=== PATIENT | male | born 1935 | race Caucasian/White ===

== ENCOUNTER 2018-12-27 10:36 | Inpatient (IN) ==
--- OUTSIDE RECORDS SUMMARY | 2018-12-27 10:39 | External Medical Summary | Continuity of Care Document ---
:1935 Author Name Adore Foote Address Unavailable Unavailable , Care Team Providers Name Role Phone Unavailable Unavailable Unavailable PCP, NO Unavailable Unavailable Unavailable Unavailable Unavailable Problems Active medical history not documented Allergies and Adverse Reactions Allergy history not documented Medications Medications not documented Procedures Procedures not documented Immunizations Immunizations not documented Plan of Treatment Planned Observations Planned Goals not documented Results No Known Results Results not documented
--- NOTE | 2018-12-27 10:46 | Emergency Department Note ---
Entered by Marybel Klein acting as a scribe for Antonio Zhang DO History of Present Illness General Chief complaint: Hip Pain Source: patient and EMS History of Present Illness Onset (ago): hour(s) (this morning) Location: hip (left) Pain Consistency: + other (episode) Quality: + other (Trauma post fall) Relieved By: not by medication (Fentanyl) Exacerbated By: + movement (standing) Associated symptoms: + denies other symptoms (abdominal pain, calf pain, right leg pain, chest pain, or shortness of breath) and + other (left rib pain, left elbow skin tear) The patient is a 83 year old male with a history of a bilateral hip replacement that is presenting to the Emergency Room with complaints of an episode of left hip pain following a fall that occurred this morning. The patient reports that he tripped on his toes and fell onto his left side. He states that his left arm came down underneath him and notes that he has a small skin tear on his left elb ow. He notes that he felt a click in his left hip followed by pain. He reports that he is unable to stand secondary to the pain. The patient notes some pain in his left-sided rib cage. He denies any abdominal pain, calf pain, right leg pain, chest pain, or shortness of breath. He states that he had bilateral hip replacements 30 years ago. He reports that he has an AAA that his providers are unable to operate on at this time. He notes that he is allergic to Ativan and aspirin. He reports that he has chronic shoulder pain but states that he is able to move his arms without any abnormal pain currently. The patient notes that he had his last Tetanus booster 5-6 years ago. He denies taking any blood thinners but notes that he takes blood pressure medication. The patient arrived to the ED via EMS. EMS notes that the patient had 4 doses of Zofran and 50mcg-Fentanyl 30 minutes prior to the ED. Home Medications Home Medications Medication Instructions Recorded Confirmed Type budesonide-formoterol [Symbicort] 2 puff INHALATION BID 12/27/18 12/27/18 History carvedilol 3.125 mg PO HS 12/27/18 12/27/18 History cholecalciferol (vitamin D3) 2,000 unit PO DAILY 12/27/18 12/27/18 History [Vitamin D3] finasteride [Proscar] 5 mg PO HS 12/27/18 12/27/18 History nifedipine 30 mg PO BID 12/27/18 12/27/18 History potassium chloride 20 meq PO DAILY 12/27/18 12/27/18 History prednisone 5 mg PO DAILY PRN 12/27/18 12/27/18 History tamsulosin [Flomax] 0.4 mg PO HS 12/27/18 12/27/18 History Allergies Allergy/AdvReac Type Severity Reaction Status Date / Time Iodinated Contrast- Oral and Allergy Intermediate HIVES Verified 12/27/18 11:21 IV Dye aspirin Allergy SWELLING/HI Verified 12/27/18 11:21 VES Cipro Allergy SWELLING/HI Verified 09/07/12 21:55 VES ciprofloxacin Allergy SWELLING/HI Verified 12/27/18 11:21 VES lorazepam Allergy NEURO Verified 12/27/18 11:21 CHANGES Past Med/Surg History Medical History Chronic shoulder pain (Chronic) Hypertension (Chronic) Surgical History S/P bilateral hip replacements Family History Other Family history non-contributory Social History marital status: Current Living Situation: Spouse current occupational status: retired Feels Safe at Home: Yes Smoking Status: Former smoker Review of Systems See HPI for pertinent positives & negatives. and A total of 10 systems reviewed and were otherwise negative Physical Exam Vital Signs Vital Signs - 24 hr 12/27/18 10:43 12/27/18 10:45 12/27/18 11:00 Temperature Temperature Source Sepsis Recent Fever Within 48 Hours Sepsis New/Unexplained Change in Mental Status Sepsis Action Taken by Nursing Pulse Rate 68 70 67 Pulse Rate from SpO2 Sensor 71 64 68 Respiratory Rate 21 22 19 Respiratory Effort / Characteristics Respiratory Pattern Blood Pressure 137/80 Blood Pressure Mean 99 Pulse Oximetry 96 95 94 Oxygen Delivery Method 12/27/18 11:01 12/27/18 11:07 12/27/18 11:16 Temperature 36.5 C Temperature Source Oral Sepsis Recent Fever Within 48 Hours No Sepsis New/Unexplained Change in Mental Status No Sepsis Action Taken by Nursing No Action Required Pulse Rate 73 69 Pulse Rate from SpO2 Sensor 68 Respiratory Rate 20 18 Respiratory Effort / Characteristics Non-Labored Spontaneous Respiratory Pattern Regular Blood Pressure 137/80 134/82 Blood Pressure Mean 90 99 99 Pulse Oximetry 94 94 Oxygen Delivery Method Room Air 12/27/18 11:30 12/27/18 11:31 12/27/18 12:00 Temperature Temperature Source Sepsis Recent Fever Within 48 Hours Sepsis New/Unexplained Change in Mental Status Sepsis Action Taken by Nursing Pulse Rate 66 71 71 Pulse Rate from SpO2 Sensor 69 69 67 Respiratory Rate 19 25 H 14 Respiratory Effort / Characteristics Respiratory Pattern Blood Pressure 136/96 Blood Pressure Mean 109 Pulse Oximetry 89 L 91 97 Oxygen Delivery Method 12/27/18 12:01 12/27/18 12:30 12/27/18 12:31 Temperature Temperature Source Sepsis Recent Fever Within 48 Hours Sepsis New/Unexplained Change in Mental Status Sepsis Action Taken by Nursing Pulse Rate 68 70 73 Pulse Rate from SpO2 Sensor 69 71 73 Respiratory Rate 16 14 17 Respiratory Effort / Characteristics Respiratory Pattern Blood Pressure 130/78 127/90 Blood Pressure Mean 95 102 Pulse Oximetry 92 95 94 Oxygen Delivery Method GENERAL: The patient is awake and alert. He is very anxious appearing and appears to be uncomfortable. EYES: The conjunctivae are clear. The pupils are round and reactive. EARS, NOSE, MOUTH AND THROAT: The nose is without any evidence of any deformity. Mucous membranes are moist tongue is midline. There is ecchymosis and abrasion over the left side of the forehead. No active bleeding is noted. NECK: The neck is nontender and supple. RESPIRATORY: Normal respiratory effort is noted there is no evidence of wheezing rhonchi or rales CARDIOVASCULAR: Regular rate and rhythm noted there no murmurs rubs or gallops normal S1 normal S2 GASTROINTESTINAL: The abdomen is soft. Bowel sounds are present in all quadrants. Abdomen is nontender BACK: No midline tenderness was appreciated. MUSCULOSKELETAL/EXTREMITIES: There is pain with range of motion of the left hip. There is no shortening or deformity noted. Palpable tenderness is noted over the lateral aspect the left hip. There is palpable tenderness over the left side of the chest. No crepitus was appreciated. SKIN: Pedal edema was noted bilaterally. Venous stasis changes are noted in both legs. There are skin tears in the left forearm. NEUROLOGIC: Patient is awake alert and oriented x3. Course 1037:The patient was evaluated in room A03. A complete history and physical examination was performed. 1141: I updated the patient on his current lab and imaging results. He is resting comfortably at this time. He is amenable to the treatment plan. 1151: I discussed the patient's case with Mónica Arroyo, who will evaluate the patient for further management and care. 1153: I discussed the patient's case with Dr. Espino, Orthopedic Surgeon, who will follow with a consultation to determine the patient's surgical needs if any. 1205: Upon reevaluation, the patient is resting comfortably. I discussed laboratory and radiographic results with the patient. He verbalized agreement of the treatment plan. The patient will be evaluated for further management and care. Consultations Consultation #1: I discussed the patient's case with Mónica Arroyo, who will evaluate the patient for further management and care. Time: 11:51 Consultation #2: I discussed the patient's case with Dr. Espino, Orthopedic Surgeon at [facility], who will follow with a consultation to determine the patient's surgical needs if any. Time: 11:53 Administered Medications Morphine Sulfate (Morphine Sulfate) 4 mg IV Q15M PRN PRN Reason: Pain Stop: 01/10/19 10:42 Last Admin: 12/27/18 10:57 Dose: 4 mg Documented by: [id number] Medical Decision Making Differential Diagnosis Differential diagnosis: Etiologies such as fracture, dislocation, intra-abdominal, pneumothorax, intrathoracic , intracranial, neurologic, as well as other traumatic pathologies were entertained. Medical Records Attestation: I reviewed the patient's medical records. Home Medications Current Medication List: was personally reviewed by me Laboratory Data Attestation: I reviewed the patient's lab results. Result diagrams: 12/27/18 09:50 12/27/18 09:50 Lab Results 12/27/18 12/27/18 12/27/18 Range/Units 09:50 09:50 09:50 WBC 5.38 (4.8-10.8) K/uL RBC 4.69 L (4.7-6.1) M/uL Hgb 15.2 (14.0-18.0) g/dL Hct 44.2 (42-52) % MCV 94.2 (80-100) fL MCH 32.4 (25-34) pg MCHC 34.4 (32-36) g/dL RDW Std Deviation 49.1 H (36.4-46.3) fL RDW Coeff of Miles 14.4 (11.5-14.5) % Plt Count 90 L (130-400) K/uL MPV 11.7 H (7.4-10.4) fL Immature Gran % (Auto) 0.4 % Neut % (Auto) 69.3 % Lymph % (Auto) 19.9 % [place] % (Auto) 9.5 % Eos % (Auto) 0.9 % Baso % (Auto) 0.0 % Immature Gran # (Auto) 0.02 (0.00-0.02) K/uL Neut # (Auto) 3.73 (1.4-6.5) K/uL Lymph # (Auto) 1.07 L (1.2-3.4) K/uL [place] # (Auto) 0.51 (0.11-0.59) K/uL Eos # (Auto) 0.05 (0-0.5) K/uL Baso # (Auto) 0.00 (0-0.2) K/uL Platelet Estimate Decreased L (Normal) PT 11.4 (9.0-12.0) Seconds INR 1.1 (0.9-1.1) APTT 26.6 (21.0-31.0) Seconds PTT Ratio 1.0 Sodium 142 (136-145) mmol/L Potassium 3.1 L (3.5-5.1) mmol/L Chloride 107 (98-107) mmol/L Carbon Dioxide 25 (21-32) mmol/L Anion Gap 10.0 (3-11) BUN 19 H (7-18) mg/dl Creatinine 0.92 (0.6-1.4) mg/dl Est Cr Clr Drug Dosing Not Reportable Est GFR ( Amer) 89.5 Est GFR (Non-Af Amer) 77.2 BUN/Creatinine Ratio 21.1 H (10-20) Glucose 112 H (70-99) mg/dl Calcium 8.3 L (8.5-10.1) mg/dl Troponin I < 0.015 (0-0.045) ng/ml Imaging Data Radiologist's Impression: Radiology results as stated below per my review and the radiologist's interpretation: CT OF THE HEAD WITHOUT CONTRAST CLINICAL HISTORY: Fall. COMPARISON STUDY: No previous studies for comparison. TECHNIQUE: Helical axial images of the head were obtained without IV contrast. Automated exposure control was utilized for the study. A dose lowering technique was utilized adhering to the principles of ALARA. FINDINGS: No acute intracranial hemorrhage, midline shift or mass effect is present. The ventricular system is unremarkable. The basilar cisterns are patent. No extra-axial collections are present. There are no findings to suggest acute dural sinus thrombosis or acute territorial infarct. Small left frontal scalp contusion is noted. There is no calvarial fracture. Air-fluid level within the left maxillary sinus is noted. Wall thickening of the left maxilla sinus is noted. IMPRESSION: 1. No acute intracranial findings. 2. Small left frontal scalp contusion. No calvarial fracture. 3. Air-fluid level within the left maxillary sinus which is likely inflammatory. Electronically signed by: Ky Malhotra M.D. 12/27/2018 11:[address] OF THE CERVICAL SPINE WITHOUT CONTRAST CLINICAL HISTORY: Fall. COMPARISON STUDY: No previous studies for comparison. TECHNIQUE: Helical axial images of the cervical spine were obtained without IV contrast. Sagittal and coronal reconstructions were viewed. Automated exposure control was utilized for the study. A dose lowering technique was utilized adhering to the principles of ALARA. FINDINGS: No cervical spine fracture is noted. There is severe multilevel facet arthrosis and marked disc space narrowing with osteophytosis at C5-C6 and C6-C7. There is no prevertebral edema. Facet joints are intact. No osseous lesion is noted. Left maxillary sinus air-fluid level is likely inflammatory. IMPRESSION: No acute cervical spine fracture or subluxation. Electronically signed by: Ky Malhotra M.D. 12/27/2018 11:23 AM XR chest 1V portable CLINICAL HISTORY: Fall. COMPARISON STUDY: Chest radiograph September 25, 2012. MRI of the chest March 05, 2016. FINDINGS: Prominence of the aortic arch is again noted. Cardiomegaly is unchanged. There is no evidence for pulmonary edema or pneumonia. No pneumothorax or pleural effusion is noted. There are several age indeterminate nondisplaced anterolateral left rib fractures including the fifth, sixth, seventh ribs and eighth ribs. IMPRESSION: Several age indeterminate nondisplaced left-sided rib fractures. No pneumothorax. Electronically signed by: Ky Malhotra M.D. 12/27/2018 11:45 AM XR hip LT 2-3V w pelvis CLINICAL HISTORY: Fall. Left hip pain. COMPARISON: CT of the chest, abdomen and pelvis September 25, 2012. FINDINGS: Bilateral total hip arthroplasties are noted. No acute fracture within the pelvis is noted. No proximal right femoral fracture is noted. Note is made of an acute minimally displaced comminuted periprosthetic left femoral fracture which extends through the base of the greater trochanter. IMPRESSION: Acute minimally displaced comminuted periprosthetic left femoral fracture which extends through the greater trochanter. Electronically signed by: Ky Malhotra M.D. 12/27/2018 11:41 AM ECG Data Attestation: I personally reviewed and interpreted this ECG as follows: Indication: other (trauma) Rate (beats per minute): 64 Rhythm: normal sinus Findings: no PAC, no PVC, no ST depression, no ST elevation, no acute ischemic change and no ectopy Comparison ECG Date: from (09/25/12) Change: no significant change Blood Pressure Blood Pressure Findings: Elevated blood pressure Blood Pressure Disposition: Referred to patients primary care provider YEIMI Narrative The patient is an 83-year-old male who presented to the emergency department after a fall. The patient had a mechanical fall where he landed on his left side. He suffered a chest wall contusion facial contusion but also was found to have signs of hip fracture on x-ray. The patient was found to have a p eriprosthetic hip fracture. He is unable to bear weight prior to arrival at this time he was advised to remain nonweightbearing. He was treated with pain medication in the emergency department. I discussed the patient's laboratory and radiographic studies with him and his family members. I also discussed his case with the on-call [facility] hospitalist group. They have agreed to evaluate the patient in the emergency department for further management disposition. I also discussed this case with the on-call orthopedic physician. Impression & Plan Fall, Periprosthetic fracture around internal prosthetic left hip joint, Head injury, Contusion of chest, Facial contusion Discharge Plan Visit Data Chief Complaint: Hip Pain ED Provider: Antonio Zhang Discharge Problem: Fall, Periprosthetic fracture around internal prosthetic left hip joint, Head injury, Contusion of chest, Facial contusion Patient Disposition: Being Evaluated by Hospitalist Forms Stand Alone Forms: My [facility] Prescriptions Prescriptions: No Action prednisone 5 mg tablet 5 mg PO DAILY PRN (Reason: knee pain) RF: 0 carvedilol 3.125 mg tablet 3.125 mg PO HS RF: 0 nifedipine 30 mg Tablet Extended Release 24hr 30 mg PO BID RF: 0 tamsulosin [Flomax] 0.4 mg Capsule 0.4 mg PO HS RF: 0 finasteride [Proscar] 5 mg Tablet 5 mg PO HS RF: 0 Symbicort 160-4.5 mcg/actuation Hfa Aerosol Inhaler 2 puff INHALATION BID RF: 0 cholecalciferol (vitamin D3) [Vitamin D3] 2,000 unit Tablet 2,000 unit PO DAILY RF: 0 potassium chloride 20 mEq Tablet Extended Release 20 meq PO DAILY RF: 0 Referrals Referrals: Ricky Landers MD [Primary Care Provider] - Discharge Problem: Fall Qualifiers: Encounter type: initial encounter Qualified Code(s): W19.XXXA - Unspecified fall, initial encounter Periprosthetic fracture around internal prosthetic left hip joint Qualifiers: Encounter type: initial encounter Qualified Code(s): M97.02XA - Periprosthetic fracture around internal prosthetic left hip joint, initial encounter Head injury Qualifiers: Encounter type: initial encounter Qualified Code(s): S09.90XA - Unspecified injury of head, initial encounter Contusion of chest Qualifiers: Encounter type: initial encounter Laterality: left Qualified Code(s): S20.212A - Contusion of left front wall of thorax, initial encounter Facial contusion Qualifiers: Encounter type: initial encounter Qualified Code(s): S00.83XA - Contusion of other part of head, initial encounter The scribe's documentation has been prepared under my direction and personally reviewed by me in its entirety. I confirm that the note above accurately reflects all work, treatment, procedures, and medical decision making performed by me.
[2018-12-27] MEDS: MoRPHine SULFATE 4 MG/ML 1 ML CARP\\VIAL IV PRN ×3 (10:57→16:00)
[2018-12-27 11:08] LABS: INR 1.1 (0.9-1.1); Partial Thromboplastin Time 26.6 Seconds (21.0-31.0); Prothrombin Time 11.4 Seconds (9.0-12.0)
[2018-12-27 11:10] LABS: BUN Creatinine Ratio 21.1 (10-20); Blood Urea Nitrogen 19 mg/dl (7-18); Calcium 8.3 mg/dl (8.5-10.1); Carbon Dioxide 25 mmol/L (21-32); Chloride 107 mmol/L (98-107); Est GFR (African American) 89.5; Est GFR (Non-African American) 77.2; Glucose 112 mg/dl (70-99); Potassium 3.1 mmol/L (3.5-5.1); Sodium 142 mmol/L (136-145)
[2018-12-27 11:13] LABS: Eosinophils # (auto) 0.05 K/uL (0-0.5); Eosinophils % (auto) 0.9 %; Hematocrit (blood only) 44.2 % (42-52); Hemoglobin 15.2 g/dL (14.0-18.0); Immature Granulocytes # (auto) 0.02 K/uL (0.00-0.02); Immature Granulocytes % (auto) 0.4 %; Lymphocytes # (auto) 1.07 K/uL (1.2-3.4); Lymphocytes % (auto) 19.9 %; Mean Corpuscular Hemoglobin 32.4 pg (25-34); Mean Corpuscular Hgb Conc 34.4 g/dL (32-36); Mean Corpuscular Volume 94.2 fL (80-100); Mean Platelet Volume 11.7 fL (7.4-10.4); Monocytes # (auto) 0.51 K/uL (0.11-0.59); Monocytes % (auto) 9.5 %; Neutrophils # (auto) 3.73 K/uL (1.4-6.5); Neutrophils % (auto) 69.3 %; Platelet Count 90 K/uL (130-400); Platelet Estimate Decreased (Normal); RDW Coefficient of Variation 14.4 % (11.5-14.5); RDW Standard Deviation 49.1 fL (36.4-46.3); Red Blood Count 4.69 M/uL (4.7-6.1); White Blood Count 5.38 K/uL (4.8-10.8)
[2018-12-27 11:14] LABS: Troponin I < 0.015 ng/ml (0-0.045)
--- NOTE | 2018-12-27 11:17 | CT Scan Report ---
CT OF THE HEAD WITHOUT CONTRAST CLINICAL HISTORY: Fall. COMPARISON STUDY: No previous studies for comparison. TECHNIQUE: Helical axial images of the head were obtained without IV contrast. Automated exposure con trol was utilized for the study. A dose lowering technique was utilized adhering to the principles o f ALARA. FINDINGS: No acute intracranial hemorrhage, midline shift or mass effect is present. The ventricular system is unremarkable. The basilar cisterns are patent. No extra-axial collections are present. Ther e are no findings to suggest acute dural sinus thrombosis or acute territorial infarct. Small left fr ontal scalp contusion is noted. There is no calvarial fracture. Air-fluid level within the left maxil shagufta sinus is noted. Wall thickening of the left maxilla sinus is noted. IMPRESSION: 1. No acute intracranial findings. 2. Small left frontal scalp contusion. No calvarial fracture. 3. Air-fluid level within the left maxillary sinus which is likely inflammatory. Electronically signed by: Ky Malhotra M.D. 12/27/2018 11:15 AM
--- NOTE | 2018-12-27 11:25 | CT Scan Report ---
CT OF THE CERVICAL SPINE WITHOUT CONTRAST CLINICAL HISTORY: Fall. COMPARISON STUDY: No previous studies for comparison. TECHNIQUE: Helical axial images of the cervical spine were obtained without IV contrast. Sagittal a nd coronal reconstructions were viewed. Automated exposure control was utilized for the study. A do se lowering technique was utilized adhering to the principles of ALARA. FINDINGS: No cervical spine fracture is noted. There is severe multilevel facet arthrosis and marked disc space narrowing with osteophytosis at C5-C6 and C6-C7. There is no prevertebral edema. Facet yary nts are intact. No osseous lesion is noted. Left maxillary sinus air-fluid level is likely inflammato ry. IMPRESSION: No acute cervical spine fracture or subluxation. Electronically signed by: Ky Malhotra M.D. 12/27/2018 11:23 AM
--- NOTE | 2018-12-27 11:43 | XRay Report ---
XR hip LT 2-3V w pelvis CLINICAL HISTORY: Fall. Left hip pain. COMPARISON: CT of the chest, abdomen and pelvis September 25, 2012. FINDINGS: Bilateral total hip arthroplasties are noted. No acute fracture within the pelvis is noted . No proximal right femoral fracture is noted. Note is made of an acute minimally displaced comminute d periprosthetic left femoral fracture which extends through the base of the greater trochanter. IMPRESSION: Acute minimally displaced comminuted periprosthetic left femoral fracture which extends t hrough the greater trochanter. Electronically signed by: Ky Malhotra M.D. 12/27/2018 11:41 AM
--- NOTE | 2018-12-27 11:46 | XRay Report ---
XR chest 1V portable CLINICAL HISTORY: Fall. COMPARISON STUDY: Chest radiograph September 25, 2012. MRI of the chest March 05, 2016. FINDINGS: Prominence of the aortic arch is again noted. Cardiomegaly is unchanged. There is no eviden ce for pulmonary edema or pneumonia. No pneumothorax or pleural effusion is noted. There are several age indeterminate nondisplaced anterolateral left rib fractures including the fifth, sixth, seventh r ibs and eighth ribs. IMPRESSION: Several age indeterminate nondisplaced left-sided rib fractures. No pneumothorax. Electronically signed by: Ky Malhotra M.D. 12/27/2018 11:45 AM
--- NOTE | 2018-12-27 12:33 | History & Physical Report ---
Date of Service December 27, 2018 Assessment & Plan (1) Periprosthetic fracture around internal prosthetic left hip joint: Closed L hip fracture around prior prosthesis s/p mechanical fall at home two hours prior to arrival. LLE is immovable 2/2 pain. NVI. Pain control with scheduled tylenol and PRN narcotics as needed. Awaiting orthopedic recommendations. Will hold on PT/OT consultations until seen by Ortho and given activity instructions. (2) Fall: Plan as above. (3) Head injury: Minimal injury, CT head is negative, no LOC noted, Supportive care (4) Hypertension: At goal, cont home nifedipine. (5) Hypokalemia: replace and repeat in am, Mg in am. Takes chronic potassium supplementation at home. (6) Abdominal aneurysm: chronic stable on imaging August 2018. Approx 5.2cm in diameter (7) Thoracic aortic dissection: chronic, stable on imaging August 2018. (8) DVT prophylaxis: SCDs pending Ortho recommendations for possible procedure. Full Code as discussed with patient on admission. Dispo-To Ortho Med/Surg floor for assessments. Will likely require temporary rehabilitation as a transition to home. He is somewhat anxious about this. Erika Paiz DO [facility] History of Present Illness Chief Complaint: L hip pain Primary Care Provider: Ricky Landers MD 83 yo M with bilateral hip replacements presented s/p mechanical fall at home while stepping up onto a stop in his [employer] workshop. He came down on his L hip, LUE and L forehead but denies LOC or current headache. He is mentating normally. No pain in LUE. Subsequent fracture or L hip was found on imaging. He denies other lightheadedness, chest pain, shortness of breath or recent illnesses. 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 He reports taking prednisone for approx one week straight approximately once per month. He takes Symbicort PRN and states this is through the [facility] and is for asthma. He denies any current respiratory symptoms. 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 He has stable aortic pathology with no current plans for surgery. He does occasionally use Ibuprofen for OA pain and has been known to get facial swelling because he has a Type I allergy to this. He was advised that this is dangerous, and he should be given an Epi- pen at discharge. He and his verbalized understanding with intent to comply. Allergies Allergy/AdvReac Type Severity Reaction Status Date / Time Iodinated Contrast- Oral and Allergy Intermediate HIVES Verified 12/27/18 11:21 IV Dye aspirin Allergy SWELLING/HI Verified 12/27/18 11:21 VES Cipro Allergy SWELLING/HI Verified 09/07/12 21:55 VES ciprofloxacin Allergy SWELLING/HI Verified 12/27/18 11:21 VES lorazepam Allergy NEURO Verified 12/27/18 11:21 CHANGES Home Medications Home Medications Medication Instructions Recorded Confirmed Type budesonide-formoterol [Symbicort] 2 puff INHALATION BID 12/27/18 12/27/18 History carvedilol 3.125 mg PO HS 12/27/18 12/27/18 History cholecalciferol (vitamin D3) 2,000 unit PO DAILY 12/27/18 12/27/18 History [Vitamin D3] finasteride [Proscar] 5 mg PO HS 12/27/18 12/27/18 History nifedipine 30 mg PO BID 12/27/18 12/27/18 History potassium chloride 20 meq PO DAILY 12/27/18 12/27/18 History prednisone 5 mg PO DAILY PRN 12/27/18 12/27/18 History tamsulosin [Flomax] 0.4 mg PO HS 12/27/18 12/27/18 History Past Med/Surg History Medical History Chronic shoulder pain (Chronic) Hypertension (Chronic) Abdominal aortic aneurysm BPH (benign prostatic hyperplasia) Cataract Chronic rhinitis Contrast media allergy Elevated PSA GERD with esophagitis Generalized osteoarthritis Rosacea Thoracic aortic dissection Surgical History S/P bilateral hip replacements H/O cystoscopy H/O hemorrhoidectomy H/O inguinal hernia repair History of tonsillectomy S/P appy Family History Brother Diabetes Brother Coronary heart disease Sister Aortic aneurysm Social History Preferred Language: Italian Communication Ability: Effective Air Tube Releaser Required: No Beliefs That Will Affect Care: None marital status: Current Living Situation: Spouse current occupational status: retired Other Information That Helps Us Care for You: No Feels Safe at Home: Yes Safety Concerns: Feels Safe At This Time Smoking Status: Former smoker Tobacco Type: cigarettes ; Smoking End Date: 1982 ; Hx Alcohol Use: Yes Alcohol type: beer Hx Substance Use: No Review of Systems Review of Systems: All systems reviewed & are unremarkable except as noted in HPI & below Physical Exam Physical Exam: CONSTITUTIONAL: WNWD, vitals as above, generally well- appearing EYES: EOMI bilaterally, PERRL, normal conjunctivae, no scleral icterus, some chronic abnormality of L eye compared with right-more sluggish to move, aperture more closed than L eye ENT: oropharynx clear, MMM RESPIRATORY: clear to auscultation bilaterally, no crackles, rales or wheezes, normal respiratory effort CARDIOVASCULAR: regular rate and rhythm, S1 and 2 heard without murmurs, gallops or rubs, no JVD, no peripheral edema GASTROINTESTINAL: soft, nontender, nondistended MUSCULOSKELETAL: strength 5/5 throughout-LLE immovable 2/2 pain and fracture, head is normocephalic. No pain to palpation or decreased ROM of LUE. Lower extremities are NVI. SKIN: warm and dry, small L frontal scalp laceration. Small skin tear on L arm. NEUROLOGIC: No facial palsy, no dysarthria. CN 2-12 grossly intact, no sensory deficit, normal cognition, normal speech, no tremor, no gross focal deficits. PSYCHIATRIC: alert cooperative and oriented to person, place and time. Results & Data Vital Signs (Past 12 Hours) Vital Signs Temp Pulse Resp BP Pulse Ox 12/27/18 12:01 68 16 130/78 92 12/27/18 12:00 71 14 97 12/27/18 11:31 71 25 H 136/96 91 12/27/18 11:30 66 19 89 L 12/27/18 11:16 69 18 134/82 94 12/27/18 11:07 36.5 C 73 20 137/80 94 12/27/18 11:00 67 19 94 12/27/18 10:45 70 22 95 12/27/18 10:43 68 21 137/80 96 Laboratory Results Short CBC 12/27/18 Range/Units 09:50 WBC 5.38 (4.8-10.8) K/uL Hgb 15.2 (14.0-18.0) g/dL Hct 44.2 (42-52) % Plt Count 90 L (130-400) K/uL BMP 12/27/18 09:50 Sodium 142 Potassium 3.1 L Chloride 107 Carbon Dioxide 25 BUN 19 H Creatinine 0.92 Glucose 112 H Calcium 8.3 L Cardiac Enzymes 12/27/18 Range/Units 09:50 Troponin I < 0.015 (0-0.045) ng/ml Diagnostic Findings CT OF THE CERVICAL SPINE WITHOUT CONTRAST FINDINGS: No cervical spine fracture is noted. There is severe multilevel facet arthrosis and marked disc space narrowing with osteophytosis at C5-C6 and C6-C7. There is no prevertebral edema. Facet joints are intact. No osseous lesion is noted. Left maxillary sinus air-fluid level is likely inflammatory. IMPRESSION: No acute cervical spine fracture or subluxation. XR chest 1V portable FINDINGS: Prominence of the aortic arch is again noted. Cardiomegaly is unchanged. There is no evidence for pulmonary edema or pneumonia. No pneumot horax or pleural effusion is noted. There are several age indeterminate nondisplaced anterolateral left rib fractures including the fifth, sixth, seventh ribs and eighth ribs. IMPRESSION: Several age indeterminate nondisplaced left-sided rib fractures. No pneumothorax. XR hip LT 2-3V w pelvis FINDINGS: Bilateral total hip arthroplasties are noted. No acute fracture within the pelvis is noted. No proximal right femoral fracture is noted. Note is made of an acute minimally displaced comminuted periprosthetic left femoral fr acture which extends through the base of the greater trochanter. IMPRESSION: Acute minimally displaced comminuted periprosthetic left femoral fracture which extends through the greater trochanter CT OF THE HEAD WITHOUT CONTRAST FINDINGS: No acute intracranial hemorrhage, midline shift or mass effect is present. The ventricular system is unremarkable. The basilar cisterns are patent. No extra-axial collections are present. There are no findings to suggest acute dural sinus thrombosis or acute territorial infarct. Small left frontal scalp contusion is noted. There is no calvarial fracture. Air-fluid level within the left maxillary sinus is noted. Wall thickening of the left maxilla sinus is noted. IMPRESSION: 1. No acute intracranial findings. 2. Small left frontal scalp contusion. No calvarial fracture. 3. Air-fluid level within the left maxillary sinus which is likely inflammatory. Code Status & VTE Plan Code Status Full VTE Prophylaxis Plan VTE Prophylaxis will be ordered: Yes (1) Head injury Encounter type: initial encounter Qualified Code(s): S09.90XA - Unspecified injury of head, initial encounter (2) Fall Encounter type: initial encounter Qualified Code(s): W19.XXXA - Unspecified fall, initial encounter
[2018-12-27] MEDS ORDERED: NALOXONE HCL 0.4 MG/1 ML VIAL/CARP IV PRN (13:33)
[2018-12-27] MEDS: ACETAMINOPHEN 500 MG TAB PO SCH ×2 (15:05→21:06)
[2018-12-27] MEDS: POTASSIUM CHLORIDE 20 MEQ TABCR PO SCH ×2 (15:05→21:05)
[2018-12-27 15:21] LABS: Appearance Urine Clear (Clear); Bacteria Urine Automated 4+ (Negative); Bilirubin Urine Negative (Negative); Blood Urine Negative (Negative); Color Urine Yellow; Epithelial Cell Urine Auto 0-5 /lpf (0-5); Glucose Urine UA Negative (Negative); Ketones Urine Negative (Negative); Leukocyte Esterase Urine 2+ (Negative); Nitrite Urine Positive (Negative); Protein Urine Negative (Negative); RBC Urine Automated 0-4 /hpf (0-4); Specific Gravity Urine 1.016 (1.000-1.030); Urobilinogen Urine Negative (Negative); WBC Urine Automated >30 /hpf (0-5); pH Urine 5.5 (4.5-7.5)
--- NOTE | 2018-12-27 16:14 | Consultation Report ---
DATE OF CONSULTATION: 12/27/2018 HISTORY OF PRESENT ILLNESS: This is an 83-year-old gentleman seen at the request of Dr. Raul Musa and Dr. Ricky Landers regarding left hip pain. The patient is in his normal state of health until earlier today when he was at home stepping up onto a step in his garage workshop. He came down on his left hip forcefully and left upper extremities and the left side of his forehead. He had immediate pain in his left hip and he had inability to ambulate. He called for his and then EMS responded and brought him to [facility] ER. Upon evaluation with radiographs, he is noted to have a comminuted periprosthetic greater trochanter fracture of the left hip. Appeared to have a well fixed component placed approximately 30 years ago at [facility]. The patient had no problems regarding his hips for the last 30 years and no prodrome of symptoms. No loss of consciousness. Orthopedics was consulted regarding his fracture. PAST MEDICAL HISTORY: Chronic shoulder pain, hypertension, osteoarthritis, has an abdominal aortic aneurysm, COPD, hypertension, benign prostatic hypertrophy. PAST SURGICAL HISTORY: Bilateral hip replacements. The rest is noncontributory. SOCIAL HISTORY: He is . He is retired and lives with his spouse. He is a former smoker. PHYSICAL EXAMINATION: GENERAL: This is an 83-year-old gentleman who is alert and oriented x3. Speech clear and fluent. Affect is appropriate. Lying supine in his hospital room bed. No acute distress. MUSCULOSKELETAL: Examination of the left hip demonstrates a well-healed surgical scar with local ecchymosis. He has tenderness to palpation of the greater trochanter and the proximal left femur. He has discomfort with palpation, active and passive range of motion, log roll and heel strike related to the left proximal hip. He has some weakness in the left hip compared to the right due to pain and guarding. DIAGNOSTIC DATA: Radiographs of the left hip and pelvis demonstrate bilateral hip replacements, appear to be well fixed with some eccentric wear of the polyethylene. Appears to be some lucency around the acetabulum and the proximal femur bilaterally. Fracture is comminuted, it is minimally displaced approximately 1-2 mm at the greater trochanter. The rest of the prosthetic stem appears to be well fixed in the femur. No evidence of malrotation or misalignment. IMPRESSION: Left greater trochanteric periprosthetic hip fracture with comminution and mild minimal displacement with a well fixed component and some symmetric eccentric wear bilateral hips. RECOMMENDATION: Continue bed rest at this time. Supportive care, pain medication as needed. Ice to the affected site. TEDs and SCDs while in bed. Maintain nonweightbearing left lower extremity at this time. Recommend CT scan of the left hip to assess degree and severity of comminution, displacement and assess for stability of the implants prior to any weightbearing in the left hip. We will follow with you. Thank you for the opportunity to consult in care of this patient.
--- NOTE | 2018-12-27 16:36 | CT Scan Report ---
CT hip LT wo con HISTORY: 83 years-old Male Left Greater trochanteric periprosthetic fracture acute left hip pain sta tus post fall. COMPARISON: Pelvis and left hip radiographs of same day TECHNIQUE: Multiple axial CT images of the left hip were obtained without the use of IV contrast. A d ose lowering technique was used consistent with the principals of RADHA. FINDINGS: Demineralized appearance the bones. Bilateral hip total joint arthroplasties with elongated femoral s tems. The imaged sacrum and left-sided pelvic bones appear to be intact. Streak artifact from the lef t hip total joint arthroplasty limits evaluation of the adjacent structures. There is an acute commin uted periprosthetic fracture of the left femur which involves the greater trochanter and subtrochante shikha distribution the proximal 6 mm lateral displacement of the proximal fracture fragments. Additiona lly, there is approximately 1.5 cm anterior displacement of the greater trochanteric fracture fragmen ts. No fracture extension identified within the medial cortex. No evidence of hardware loosening. Arterial calcifications are noted. Small fat filled left inguinal hernia. Marked prostamegaly. Posttr aumatic deep tissue edema about the left hip. IMPRESSION: 1. Bilateral hip total joint arthroplasties. Acute mildly displaced comminuted periprostatic fracture about the left femur with extension into the greater trochanter. 2. No associated dislocation or acute pelvic fracture identified. The above report was generated using voice recognition software. It may contain grammatical, syntax o r spelling errors. Electronically signed by: Thomas Rios M.D. 12/27/2018 4:34 PM
[2018-12-27] MEDS: TAMSULOSIN HCL 0.4 MG CAP PO SCH (21:05)
[2018-12-27] MEDS: NIFEdipine EXTENDED REL 30 MG TABCR PO SCH (21:05)
[2018-12-27] MEDS: CARVEDILOL 3.125 MG TAB PO SCH (21:06)
[2018-12-27] MEDS: FINASTERIDE 5 MG TAB PO SCH (21:06)
[2018-12-28] MEDS: ACETAMINOPHEN 500 MG TAB PO SCH ×3 (05:26→21:04)
[2018-12-28 06:11] LABS: Hematocrit (blood only) 37.3 % (42-52); Hemoglobin 12.6 g/dL (14.0-18.0); Mean Corpuscular Hemoglobin 32.1 pg (25-34); Mean Corpuscular Hgb Conc 33.8 g/dL (32-36); Mean Corpuscular Volume 94.9 fL (80-100); Mean Platelet Volume 10.8 fL (7.4-10.4); Platelet Count 72 K/uL (130-400); RDW Coefficient of Variation 14.5 % (11.5-14.5); RDW Standard Deviation 50.9 fL (36.4-46.3); Red Blood Count 3.93 M/uL (4.7-6.1); White Blood Count 6.34 K/uL (4.8-10.8)
[2018-12-28 07:00] LABS: Calcium 8.1 mg/dl (8.5-10.1); Creatinine Clr Calc Pharmacy 55.4 ml/min; Est GFR (African American) 68.3; Est GFR (Non-African American) 58.9; Potassium 3.8 mmol/L (3.5-5.1)
--- NOTE | 2018-12-28 10:38 | Hospitalist Progress Note ---
Date of Service December 28, 2018 Assessment & Plan (1) Periprosthetic fracture around internal prosthetic left hip joint: Closed L hip fracture around prior prosthesis s/p mechanical fall at home two hours prior to arrival. LLE is immovable 2/2 pain. NVI. Pain control with scheduled tylenol and PRN narcotics as needed. Awaiting orthopedic recommendations. Will hold on PT/OT consultations until seen by Ortho and given activity instructions. (2) Fall: Plan as above. (3) Head injury: Minimal injury, CT head is negative, no LOC noted, Supportive care (4) Hypertension: At goal, cont home nifedipine. (5) Hypokalemia: replace and repeat in am, Mg in am. Takes chronic potassium supplementation at home. (6) Abdominal aneurysm: chronic stable on imaging August 2018. Approx 5.2cm in diameter (7) Thoracic aortic dissection: chronic, stable on imaging August 2018. (8) DVT prophylaxis: SCDs pending Ortho recommendations for possible procedure. Full Code as discussed with patient on admission. Dispo-To Ortho Med/Surg floor for assessments. Will likely require temporary rehabilitation as a transition to home. He is somewhat anxious about this. ROS-No Headache, No Visual Changes, No Nausea, No Vomiting, No Fever, No Chills, No Neck Pain or Stiffness, No Chest Pain, No Palpitations, No SOB, No [place], No Cough, No Sputum, No Wheezing, No Abdominal Pain, No Diarrhea, No Hematemesis, No Hemoptysis, No Unexpected Weight Loss, No Flank pain, No Melena, No Hematochezia, No Frequency, No Urgency, No Burning, No Hematuria, No Rashes, No Diaphoresis. Appetite is Normal, Sore ribs and Hip Physical Exam Gen-AAO x 3, NAD, Afebrile, Very Pleasant Head-NCAT, EOMI, PERRLA, Anicteric Sclera, No Posterior Pharyngeal Erythema Neck-Supple, No JVD, No Thyromegaly, No Masses, No LAD, No Bruits Lungs-Clear to Auscultation Bilaterally, No Rales, No Rhonchi, No Wheezing, No Crepitus Chest-No S4, +S1, +S2, No S3, No Murmurs, No Rubs, No Gallops, No Ectopy Abdomen-Soft, Bowel Sounds Present, Non Tender, Non Distended, No Hepatomegaly, No Splenomegaly, No Palpable Masses, No Rebound, No Rigidity, No Guarding Musculoskeletal-Full Range of Motion Bilaterally, No CVAT Extremities-No Cyanosis, No Clubbing, No Edema Nuero-Cranial Nerves II-XII grossly intact, Motor WNL, DTRs WNL, Strength WNL, Non Focal Psych-Normal Mood Results & Data Vital Signs (Past 12 Hours) Vital Signs Temp Pulse Resp BP Pulse Ox Pulse Ox 12/28/18 06:59 36.6 C 74 16 116/75 91 12/28/18 04:00 98 12/28/18 00:00 98 12/27/18 23:35 36.7 C 71 18 127/75 93 Current Diagnoses Hypokalemia (12/27/18) Essential (primary) hypertension (12/27/18) Dissection of thoracic aorta (12/27/18) Abdominal aortic aneurysm, without rupture (12/27/18) Periprosthetic fracture around internal prosthetic left hip joint, initial encounter (12/27/18) Unspecified injury of head, initial encounter (12/27/18) Unspecified fall, initial encounter (12/27/18) Encounter for prophylactic measures, unspecified (12/27/18) Allergies Iodinated Contrast- Oral and IV Dye Allergy (Intermediate, Verified 12/27/18 11:21) HIVES aspirin Allergy (Verified 12/27/18 11:21) SWELLING/HIVES Cipro Allergy (Verified 09/07/12 21:55) SWELLING/HIVES ciprofloxacin Allergy (Verified 12/27/18 11:21) SWELLING/HIVES lorazepam Allergy (Verified 12/27/18 11:21) NEURO CHANGES Height/Weight/Isolation Height 5 ft 8 in Weight 95 kg Chemistry 12/27/18 12/28/18 09:50 05:48 Sodium 142 139 Potassium 3.1 L 3.8 D Chloride 107 107 Carbon Dioxide 25 28 Anion Gap 10.0 5.0 BUN 19 H 24 H Creatinine 0.92 1.15 Glucose 112 H 97 Urinalysis 12/27/18 15:07 Urine Color Yellow Urine Appearance Clear Urine pH 5.5 Ur Specific [place] 1.016 Urine Protein Negative Urine Glucose (UA) Negative Urine Ketones Negative Urine Blood Negative Urine Nitrite Positive A Urine Bilirubin Negative Microbiology 12/27/18 15:07 Urine,Clean Catch Urine Culture - Preliminary Gram negative bacilli (1) Fall Encounter type: initial encounter Qualified Code(s): W19.XXXA - Unspecified fall, initial encounter (2) Head injury Encounter type: initial encounter Qualified Code(s): S09.90XA - Unspecified injury of head, initial encounter
[2018-12-28] MEDS: NIFEdipine EXTENDED REL 30 MG TABCR PO SCH ×2 (11:13→21:04)
[2018-12-28] MEDS: CHOLECALCIFEROL 1,000 UNITS TAB PO SCH (11:13)
[2018-12-28] MEDS: POTASSIUM CHLORIDE 20 MEQ TABCR PO SCH (11:13)
--- NOTE | 2018-12-28 11:42 | Orthopedic Progress Note ---
Date of Service December 28, 2018 Assessment & Plan (1) Periprosthetic fracture around internal prosthetic left hip joint: Left hip periprosthetic greater trochanteric fracture with minimal displacement. Status post fall onto left hip. Recommend closed treatment of the left hip, nonoperative care. Nonweightbearing left lower extremity for period of 4 weeks. Ice to the left hip. Will likely require a wheelchair. Social service for discharge planning. Follow-up in clinic in 4 weeks for repeat radiographs. Present on Admission?: Yes Subjective Patient was seen at bedside resting comfortably. Left hip pain slightly improved compared to yesterday. Has not been ambulating as per previous recommendations. No chest pain no shortness of breath. Physical Exam Physical Exam: Left hip well-healed surgical incision. Slight ecchymosis over the greater trochanter left. Unchanged strength and range of motion exam compared to yesterday. Hip joint is reduced and stable left. Distal neurosensory exam is intact bilateral lower extremities. Results & Data Vital Signs (Past 12 Hours) Vital Signs Temp Pulse Resp BP Pulse Ox Pulse Ox 12/28/18 11:11 74 129/80 12/28/18 06:59 36.6 C 74 16 116/75 91 12/28/18 04:00 98 12/28/18 00:00 98 (1) Periprosthetic fracture around internal prosthetic left hip joint Encounter type: initial encounter Qualified Code(s): M97.02XA - Periprosthetic fracture around internal prosthetic left hip joint, initial e ncounter; T84.041A - Periprosthetic fracture around internal prosthetic left hip joint, initial encounter
[2018-12-28] MEDS: MoRPHine SULFATE 4 MG/ML 1 ML CARP\\VIAL IV PRN ×2 (15:39→16:56)
[2018-12-28] MEDS: CARVEDILOL 3.125 MG TAB PO SCH (21:04)
[2018-12-28] MEDS: FINASTERIDE 5 MG TAB PO SCH (21:04)
[2018-12-28] MEDS: TAMSULOSIN HCL 0.4 MG CAP PO SCH (21:05)
[2018-12-29] MEDS: ACETAMINOPHEN 500 MG TAB PO SCH ×3 (05:23→20:55)
[2018-12-29 06:58] LABS: Hematocrit (blood only) 36.3 % (42-52); Hemoglobin 12.2 g/dL (14.0-18.0); Mean Corpuscular Hemoglobin 32.2 pg (25-34); Mean Corpuscular Hgb Conc 33.6 g/dL (32-36); Mean Corpuscular Volume 95.8 fL (80-100); RDW Coefficient of Variation 14.4 % (11.5-14.5); RDW Standard Deviation 50.5 fL (36.4-46.3); Red Blood Count 3.79 M/uL (4.7-6.1); White Blood Count 7.78 K/uL (4.8-10.8)
[2018-12-29 07:11] LABS: Platelet Count 62 K/uL (130-400)
[2018-12-29 07:41] LABS: Est GFR (African American) 94.5; Potassium 4.2 mmol/L (3.5-5.1)
[2018-12-29 07:42] LABS: BUN Creatinine Ratio 24.3 (10-20); Calcium 8.3 mg/dl (8.5-10.1); Creatinine Clr Calc Pharmacy 75.8 ml/min; Est GFR (Non-African American) 81.5
--- NOTE | 2018-12-29 08:15 | Discharge Summary ---
Date of Service December 29, 2018 Admission HPI Per Admitting Provider 83 yo M with bilateral hip replacements presented s/p mechanical fall at home while stepping up onto a stop in his garage workshop. He came down on his L hip, LUE and L forehead but denies LOC or current headache. He is mentating normally. No pain in LUE. Subsequent fracture or L hip was found on imaging. He denies other lightheadedness, chest pain, shortness of breath or recent illnesses. 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 He reports taking prednisone for approx one week straight approximately once per month. He takes Symbicort PRN and states this is through the [facility] and is for asthma. He denies any current respiratory symptoms. 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 He has stable aortic pathology with no current plans for surgery. He does occasionally use Ibuprofen for OA pain and has been known to get facial swelling because he has a Type I allergy to this. He was advised that this is dangerous, and he should be given an Epi- pen at discharge. He and his verbalized understanding with intent to comply. Admission Exam Per Admitting Provider CONSTITUTIONAL: WNWD, vitals as above, generally well-appearing EYES: EOMI bilaterally, PERRL, normal conjunctivae, no scleral icterus, some chronic abnormality of L eye compared with right-more sluggish to move, aperture more closed than L eye ENT: oropharynx clear, MMM RESPIRATORY: clear to auscultation bilaterally, no crackles, rales or wheezes, normal respiratory effort CARDIOVASCULAR: regular rate and rhythm, S1 and 2 heard without murmurs, gallops or rubs, no JVD, no peripheral edema GASTROINTESTINAL: soft, nontender, nondistended MUSCULOSKELETAL: strength 5/5 throughout-LLE immovable 2/2 pain and fracture, head is normocephalic. No pain to palpation or decreased ROM of LUE. Lower extremities are NVI. SKIN: warm and dry, small L frontal scalp laceration. Small skin tear on L arm. NEUROLOGIC: No facial palsy, no dysarthria. CN 2-12 grossly intact, no sensory deficit, normal cognition, normal speech, no tremor, no gross focal deficits. PSYCHIATRIC: alert cooperative and oriented to person, place and time. Principal Diagnosis L periprosthetic Hip Frac Thoracic Disection AAA Fall DJD HTN Discharge Exam ROS-No Headache, No Visual Changes, No Nausea, No Vomiting, No Fever, No Chills, No Neck Pain or Stiffness, No Chest Pain, No Palpitations, No SOB, No [place], No Cough, No Sputum, No Wheezing, No Abdominal Pain, No Diarrhea, No Hematemesis, No Hemoptysis, No Unexpected Weight Loss, No Flank pain, No Melena, No Hematochezia, No Frequency, No Urgency, No Burning, No Hematuria, No Rashes, No Diaphoresis. Appetite is Normal, Sore R Ribs and L Hip Physical Exam Gen-AAO x 3, NAD, Afebrile Head-NCAT, EOMI, PERRLA, Anicteric Sclera, No Posterior Pharyngeal Erythema Neck-Supple, No JVD, No Thyromegaly, No Masses, No LAD, No Bruits Lungs-Clear to Auscultation Bilaterally, No Rales, No Rhonchi, No Wheezing, No Crepitus Chest-No S4, +S1, +S2, No S3, No Murmurs, No Rubs, No Gallops, No Ectopy Abdomen-Soft, Bowel Sounds Present, Non Tender, Non Distended, No Hepatomegaly, No Splenomegaly, No Palpable Masses, No Rebound, No Rigidity, No Guarding Musculoskeletal-Full Range of Motion Bilaterally, No CVAT, tender Extremities-No Cyanosis, No Clubbing, No Edema Nuero-Cranial Nerves II-XII grossly intact, Motor WNL, DTRs WNL, Strength WNL, Non Focal Psych-Normal Mood Discharge Data Allergies Allergy/AdvReac Type Severity Reaction Status Date / Time Iodinated Contrast- Oral and Allergy Intermediate HIVES Verified 12/27/18 11:21 IV Dye aspirin Allergy SWELLING/HI Verified 12/27/18 11:21 VES Cipro Allergy SWELLING/HI Verified 09/07/12 21:55 VES ciprofloxacin Allergy SWELLING/HI Verified 12/27/18 11:21 VES lorazepam Allergy NEURO Verified 12/27/18 11:21 CHANGES Consultations 12/27/18 13:33 Consult Case Management - Discharge Planning Routine Consult Orthopedic Surgery Routine Current Diagnoses Hypokalemia (12/27/18) Essential (primary) hypertension (12/27/18) Dissection of thoracic aorta (12/27/18) Abdominal aortic aneurysm, without rupture (12/27/18) Periprosthetic fracture around internal prosthetic left hip joint, initial encounter (12/27/18) Unspecified injury of head, initial encounter (12/27/18) Periprosthetic fracture around internal prosthetic left hip joint, initial encounter (12/27/18) Unspecified fall, initial encounter (12/27/18) Encounter for prophylactic measures, unspecified (12/27/18) Allergies Iodinated Contrast- Oral and IV Dye Allergy (Intermediate, Verified 12/27/18 11:21) HIVES aspirin Allergy (Verified 12/27/18 11:21) SWELLING/HIVES Cipro Allergy (Verified 09/07/12 21:55) SWELLING/HIVES ciprofloxacin Allergy (Verified 12/27/18 11:21) SWELLING/HIVES lorazepam Allergy (Verified 12/27/18 11:21) NEURO CHANGES Height/Weight/Isolation Height 5 ft 8 in Weight 95 kg Chemistry 12/27/18 12/28/18 12/29/18 09:50 05:48 06:48 Sodium 142 139 141 Potassium 3.1 L 3.8 D 4.2 Chloride 107 107 109 H Carbon Dioxide 25 28 25 Anion Gap 10.0 5.0 7.0 BUN 19 H 24 H 21 H Creatinine 0.92 1.15 0.84 D Glucose 112 H 97 104 H Urinalysis 12/27/18 15:07 Urine Color Yellow Urine Appearance Clear Urine pH 5.5 Ur Specific [place] 1.016 Urine Protein Negative Urine Glucose (UA) Negative Urine Ketones Negative Urine Blood Negative Urine Nitrite Positive A Urine Bilirubin Negative Microbiology 12/27/18 15:07 Urine,Clean Catch Urine Culture - Preliminary Klebsiella pneumoniae Ordered Studies 12/27/18 10:41 CT cervical spine wo con Stat CT head/brain wo con Stat 12/27/18 15:33 CT hip LT wo con Routine Hospital Course (1) Periprosthetic fracture around internal prosthetic left hip joint: Closed L hip fracture around prior prosthesis s/p mechanical fall at home. Pain control with scheduled tylenol. PT/OT Ortho recs-Recommend closed treatment of the left hip, nonoperative care. Nonweightbearing left lower extremity for period of 4 weeks. Ice to the left hip. Will likely require a wheelchair. Follow-up in clinic in 4 weeks for repeat radiographs. (2) Fall: Plan as above. (3) Head injury: Minimal injury, CT head is negative, no LOC noted, Supportive care (4) Hypertension: At goal, cont home nifedipine. (5) Hypokalemia: replace and repeat in am, Mg in am. Takes chronic potassium supplementation at home. (6) Abdominal aneurysm: chronic stable on imaging August 2018. Approx 5.2cm in diameter (7) Thoracic aortic dissection: chronic, stable on imaging August 2018. (8) DVT prophylaxis: SCDs, DVT pfx Full Code as discussed with patient on admission. Dispo-SNF, NWB 4 weeks, f/u XR before Ortho Appt in 4 weeks Total Time Total Time Spent Total Time Spent (In Minutes): 50 mins Total Time Includes: Examination of the Patient, Discharge Planning, Medication Reconciliation and Communication With Other Providers Discharge Plan Discharge Items Patient Disposition: Transfer Correction Fac Reason For Visit: L HIP FRACTURE Discharge Diagnosis: L periprosthetic Hip Frac Thoracic Disection AAA Fall DJD HTN Condition: Fair Discharge Goals: Decrease discomfort and Improve disease control Activity: As commented below Activity Comment: NWB LLE x 4 Weeks, Wheel Chair Lifting: None Bathing: No limitations Sexual Activity: Wait until after follow-up appointment Exercise/Sports: Wait until after follow-up appointment Driving/Machine Use Comment: No Driving Weightbearing: Left non-weightbearing and Right weightbearing Non-emergency contact: Primary Care Provider and Surgeon Call non-emergency contact if: you have any medication questions and your symptoms worsen Follow-up/Referrals: George Espino DO [Surgeon] - (4 weeks) Ricky Landers MD [Primary Care Provider] - Diet: Heart Healthy Addtl Provider Instructions: Needs f/u XR prior to ortho appt c Dr Espino in 4 weeks NWB LLE x 4 weeks Prescriptions: New oxycodone 5 mg Tablet 5 mg PO Q4H PRN (Reason: pain) Qty: 30 RF: 0 polyethylene glycol 3350 [Miralax] 17 gram Powder In Packet 17 g PO DAILY PRN (Reason: constipation) Qty: 30 RF: 0 Continued carvedilol 3.125 mg tablet 3.125 mg PO HS RF: 0 nifedipine 30 mg Tablet Extended Release 24hr 30 mg PO BID RF: 0 tamsulosin [Flomax] 0.4 mg Capsule 0.4 mg PO HS RF: 0 finasteride [Proscar] 5 mg Tablet 5 mg PO HS RF: 0 Symbicort 160-4.5 mcg/actuation Hfa Aerosol Inhaler 2 puff INHALATION BID RF: 0 cholecalciferol (vitamin D3) [Vitamin D3] 2,000 unit Tablet 2,000 unit PO DAILY RF: 0 potassium chloride 20 mEq Tablet Extended Release 20 meq PO DAILY RF: 0 Discontinued prednisone 5 mg tablet 5 mg PO DAILY PRN (Reason: knee pain) RF: 0 Stand-Alone Forms: [facility] Discharge Orders: Discharge Order (Routine); Ordered 12/29/18 Ordered By: Raul Musa Skilled Items Patient informed of condition?: Yes DNR: No Discharge Level of Care: Skilled Communicable Disease: No Discharge Prognosis: Stable Admission Data Admit Date/Time: 12/27/18 12:45 Attending Provider: Raul Musa Admit Provider: Erika Paiz Primary Care Provider: Ricky Landers Other Providers: George Espino Service: Medical Other Pending Studies at Discharge: No
[2018-12-29] MEDS: POTASSIUM CHLORIDE 20 MEQ TABCR PO SCH (09:08)
[2018-12-29] MEDS: CHOLECALCIFEROL 1,000 UNITS TAB PO SCH (09:08)
[2018-12-29] MEDS: NIFEdipine EXTENDED REL 30 MG TABCR PO SCH ×2 (09:08→20:55)
[2018-12-29] MEDS ORDERED: ALBUT/IPRATROP 3MG/0.5MG NEB 3 ML VIAL NEB ONE (12:06)
[2018-12-29] MEDS: OXYCODONE HCL IR 5 MG TAB (IMMEDIATE RELEASE) PO PRN ×2 (16:19→20:56)
[2018-12-29] MEDS: cefUROXime axetil 500 MG TAB PO SCH ×2 (16:19→20:53)
[2018-12-29] MEDS: MoRPHine SULFATE 2 MG/ML CARP IV PRN (19:25)
[2018-12-29] MEDS: CARVEDILOL 3.125 MG TAB PO SCH (20:54)
[2018-12-29] MEDS: TAMSULOSIN HCL 0.4 MG CAP PO SCH (20:54)
[2018-12-29] MEDS: FINASTERIDE 5 MG TAB PO SCH (20:55)
[2018-12-30] MEDS: ACETAMINOPHEN 500 MG TAB PO SCH ×3 (05:55→21:09)
[2018-12-30] MEDS: CHOLECALCIFEROL 1,000 UNITS TAB PO SCH (09:13)
[2018-12-30] MEDS: NIFEdipine EXTENDED REL 30 MG TABCR PO SCH ×2 (09:13→21:08)
[2018-12-30] MEDS: OXYCODONE HCL IR 5 MG TAB (IMMEDIATE RELEASE) PO PRN (09:13)
[2018-12-30] MEDS: cefUROXime axetil 500 MG TAB PO SCH ×2 (09:13→22:14)
[2018-12-30] MEDS: POTASSIUM CHLORIDE 20 MEQ TABCR PO SCH (09:14)
--- NOTE | 2018-12-30 09:29 | Hospitalist Progress Note ---
Date of Service December 29, 2018 Patient did not leave on 12/29 Assessment & Plan (1) Periprosthetic fracture around internal prosthetic left hip joint: Closed L hip fracture around prior prosthesis s/p mechanical fall at home. Pain control with scheduled tylenol. PT/OT Ortho recs-Recommend closed treatment of the left hip, nonoperative care. Nonweightbearing left lower extremity for period of 4 weeks. Ice to the left hip. Will likely require a wheelchair. Follow-up in clinic in 4 weeks for repeat radiographs. (2) Fall: Plan as above. (3) Head injury: Minimal injury, CT head is negative, no LOC noted, Supportive care (4) Hypertension: At goal, cont home nifedipine. (5) Hypokalemia: replace and repeat in am, Mg in am. Takes chronic potassium supplementation at home. (6) Abdominal aneurysm: chronic stable on imaging August 2018. Approx 5.2cm in diameter (7) Thoracic aortic dissection: chronic, stable on imaging August 2018. (8) DVT prophylaxis: SCDs, DVT pfx Full Code as discussed with patient on admission. Dispo-SNF, NWB 4 weeks, f/u XR before Ortho Appt in 4 weeks Results & Data Vital Signs (Past 12 Hours) Vital Signs Temp Pulse Pulse Resp BP Pulse Ox 12/30/18 07:31 36.5 C 74 20 122/74 90 12/29/18 23:19 36.8 C 77 18 119/69 90 (1) Fall Encounter type: initial encounter Qualified Code(s): W19.XXXA - Unspecified fall, initial encounter (2) Head injury Encounter type: initial encounter Qualified Code(s): S09.90XA - Unspecified injury of head, initial encounter
[2018-12-30] MEDS: TAMSULOSIN HCL 0.4 MG CAP PO SCH (21:08)
[2018-12-30] MEDS: FINASTERIDE 5 MG TAB PO SCH (21:08)
[2018-12-30] MEDS: CARVEDILOL 3.125 MG TAB PO SCH (21:09)
[2018-12-30] MEDS ORDERED: ALUMINUM/MAGNESIUM/SIMETH (MAALOX MAX) 30 ML UDC PO PRN (21:47)
[2018-12-31] MEDS: OXYCODONE HCL IR 5 MG TAB (IMMEDIATE RELEASE) PO PRN ×3 (02:09→19:13)
[2018-12-31] MEDS: ACETAMINOPHEN 500 MG TAB PO SCH ×3 (05:12→21:29)
[2018-12-31] MEDS: POLYETHYLENE (MIRALAX) 17 GM PACK PO PRN (05:50)
[2018-12-31] MEDS: NIFEdipine EXTENDED REL 30 MG TABCR PO SCH ×2 (09:03→21:33)
[2018-12-31] MEDS: CHOLECALCIFEROL 1,000 UNITS TAB PO SCH (09:03)
[2018-12-31] MEDS: cefUROXime axetil 500 MG TAB PO SCH ×2 (09:04→21:32)
[2018-12-31] MEDS: POTASSIUM CHLORIDE 20 MEQ TABCR PO SCH (09:04)
[2018-12-31] MEDS: ONDANSETRON INJ 2 MG/ML 2 ML VIAL IV PRN ×2 (09:44→10:06)
[2018-12-31] MEDS: DOCUSATE SODIUM 100 MG CAP PO SCH ×2 (12:26→21:32)
--- NOTE | 2018-12-31 18:04 | Hospitalist Progress Note ---
Date of Service December 31, 2018 Assessment & Plan (1) Periprosthetic fracture around internal prosthetic left hip joint: S/P mechanical fall Conservative management Nonweightbearing left lower extremity for 4 weeks Pain control PT OT evaluation Needs repeat follow-up with orthopedics in 4 weeks with repeat radiographs Appreciate orthopedics input Needs rehab placement Left ribs fracture--POA Secondary to fall Pain is controlled Continue incentive spirometer Urinary tract infection Urine culture: Klebsiella pneumoniae Continue p.o. antibiotics (2) Fall: Plan as above. (3) Head injury: Minimal injury, CT head is negative, no LOC noted, Supportive care (4) Hypertension: Continue nifedipine. (5) Hypokalemia: Replace electrolytes as needed Monitor (6) Abdominal aneurysm: chronic stable on imaging August 2018. Approx 5.2cm in diameter (7) Thoracic aortic dissection: chronic, stable on imaging August 2018. (8) DVT prophylaxis: Heparin SQ Code Status Full Code Disposition: Needs SNF placement Subjective Patient is seen and examined at bedside Complains of left leg pain with movement Also reports nausea and constipation today Denies any chest pain, shortness of breath, dizziness Offers no other complaints Review of Systems Review of Systems: All systems reviewed & are unremarkable except as noted in HPI & below Physical Exam Physical Exam: Physical Exam: Vitals signs as noted above General Appearance:Moderately built and nourished, no apparent distress Head: normocephalic, Atraumatic Eyes: normal inspection, EOMI Neck: supple, Trachea midline Respiratory/Chest: Normal breath sounds, CTA, left chest bruising Cardiovascular: S1, S2, No murmur Abdomen/GI:Soft, Non tender, Bowel sounds present Extremities/Musculoskelatal:normal inspection, + LE edema. Left hip well-healed surgical incision, minimal ecchymosis Neurologic/Psych:AAOX3, grossly no focal neurological deficits Skin: normal color, warm Results & Data Vital Signs (Past 12 Hours) Vital Signs Temp Pulse Pulse Resp BP Pulse Ox 12/31/18 16:00 36.7 C 83 16 137/78 93 12/31/18 08:00 36.4 C L 84 14 130/74 92 (1) Fall Encounter type: initial encounter Qualified Code(s): W19.XXXA - Unspecified fall, initial encounter (2) Head injury Encounter type: initial encounter Qualified Code(s): S09.90XA - Unspecified injury of head, initial encounter
[2018-12-31] MEDS: FINASTERIDE 5 MG TAB PO SCH (21:29)
[2018-12-31] MEDS: TAMSULOSIN HCL 0.4 MG CAP PO SCH (21:29)
[2018-12-31] MEDS: CARVEDILOL 3.125 MG TAB PO SCH (21:30)
[2018-12-31] MEDS: HEPARIN SOD 5,000 UNIT/0.5 ML VIAL SQ SCH (21:36)
[2019-01-01] MEDS: OXYCODONE HCL IR 5 MG TAB (IMMEDIATE RELEASE) PO PRN ×2 (00:03→15:34)
[2019-01-01] MEDS: ACETAMINOPHEN 500 MG TAB PO SCH ×3 (05:57→20:27)
[2019-01-01] MEDS: POLYETHYLENE (MIRALAX) 17 GM PACK PO PRN (05:58)
[2019-01-01 07:34] LABS: Hematocrit (blood only) 33.9 % (42-52); Hemoglobin 11.8 g/dL (14.0-18.0); Mean Corpuscular Hgb Conc 34.8 g/dL (32-36); Mean Corpuscular Volume 94.7 fL (80-100); RDW Coefficient of Variation 14.5 % (11.5-14.5); RDW Standard Deviation 49.3 fL (36.4-46.3); Red Blood Count 3.58 M/uL (4.7-6.1)
[2019-01-01 07:38] LABS: Mean Platelet Volume 10.6 fL (7.4-10.4); Platelet Count 79 K/uL (130-400)
[2019-01-01 08:11] LABS: BUN Creatinine Ratio 25.3 (10-20); Calcium 8.1 mg/dl (8.5-10.1); Creatinine Clr Calc Pharmacy 83.8 ml/min; Est GFR (African American) 98.5
[2019-01-01] MEDS: HEPARIN SOD 5,000 UNIT/0.5 ML VIAL SQ SCH ×2 (09:07→20:30)
[2019-01-01] MEDS: NIFEdipine EXTENDED REL 30 MG TABCR PO SCH ×2 (09:08→20:26)
[2019-01-01] MEDS: DOCUSATE SODIUM 100 MG CAP PO SCH ×2 (09:08→20:26)
[2019-01-01] MEDS: cefUROXime axetil 500 MG TAB PO SCH ×2 (09:08→20:27)
[2019-01-01] MEDS: POTASSIUM CHLORIDE 20 MEQ TABCR PO SCH (09:08)
[2019-01-01] MEDS: CHOLECALCIFEROL 1,000 UNITS TAB PO SCH (09:08)
[2019-01-01] MEDS: ONDANSETRON INJ 2 MG/ML 2 ML VIAL IV PRN (13:34)
--- NOTE | 2019-01-01 16:56 | Hospitalist Progress Note ---
Date of Service January 01, 2019 Assessment & Plan (1) Periprosthetic fracture around internal prosthetic left hip joint: S/P mechanical fall Conservative management Nonweightbearing left lower extremity for 4 weeks Pain control PT OT evaluation Needs repeat follow-up with orthopedics in 4 weeks with repeat radiographs Appreciate orthopedics input Waiting for SNF placement Case management on board Left ribs fracture--POA Secondary to fall Pain is controlled Continue incentive spirometer Urinary tract infection Urine culture: Klebsiella pneumoniae Continue p.o. antibiotics (2) Fall: Plan as above. (3) Head injury: Minimal injury, CT head is negative, no LOC noted, Supportive care (4) Hypertension: Continue nifedipine. (5) Hypokalemia: Replace electrolytes as needed Monitor (6) Abdominal aneurysm: chronic stable on imaging August 2018. Approx 5.2cm in diameter (7) Thoracic aortic dissection: chronic, stable on imaging August 2018. (8) DVT prophylaxis: Heparin SQ Code Status Full Code Disposition: Plan to discharge SNF when accepted Subjective Patient is seen and examined at bedside Reports heartburn Constipation resolved Has left leg pain with movement Waiting for SNF placement Denies any chest pain, shortness of breath, dizziness Review of Systems Review of Systems: All systems reviewed & are unremarkable except as noted in HPI & below Physical Exam Physical Exam: Physical Exam: Vitals signs as noted above General Appearance:Moderately built and nourished, no apparent distress Head: normocephalic, Atraumatic Eyes: normal inspection, EOMI Neck: supple, Trachea midline Respiratory/Chest: Normal breath sounds, CTA, left chest bruising Cardiovascular: S1, S2, No murmur Abdomen/GI:Soft, Non tender, Bowel sounds present Extremities/Musculoskelatal:normal inspection, + LE edema. Left hip well-healed surgical incision, minimal ecchymosis Neurologic/Psych:AAOX3, grossly no focal neurological deficits Skin: normal color, warm Results & Data Vital Signs (Past 12 Hours) Vital Signs Temp Pulse Pulse Resp BP BP Pulse Ox 01/01/19 15:34 36.5 C 86 18 143/77 H 92 01/01/19 07:16 36.6 C 80 20 116/71 93 Laboratory Results Short CBC 01/01/19 Range/Units 07:07 WBC 3.60 L (4.8-10.8) K/uL Hgb 11.8 L (14.0-18.0) g/dL Hct 33.9 L (42-52) % Plt Count 79 L (130-400) K/uL BMP 01/01/19 07:07 Sodium 137 Potassium 4.0 Chloride 104 Carbon Dioxide 28 BUN 19 H Creatinine 0.76 Glucose 98 Calcium 8.1 L (1) Fall Encounter type: initial encounter Qualified Code(s): W19.XXXA - Unspecified fall, initial encounter (2) Head injury Encounter type: initial encounter Qualified Code(s): S09.90XA - Unspecified injury of head, initial encounter
[2019-01-01] MEDS: FINASTERIDE 5 MG TAB PO SCH (20:26)
[2019-01-01] MEDS: CARVEDILOL 3.125 MG TAB PO SCH (20:27)
[2019-01-01] MEDS: TAMSULOSIN HCL 0.4 MG CAP PO SCH (20:27)
[2019-01-02] MEDS: OXYCODONE HCL IR 5 MG TAB (IMMEDIATE RELEASE) PO PRN ×3 (00:12→18:04)
[2019-01-02] MEDS: ACETAMINOPHEN 500 MG TAB PO SCH ×2 (05:59→13:59)
[2019-01-02 07:22] LABS: Hematocrit (blood only) 34.1 % (42-52); Hemoglobin 11.5 g/dL (14.0-18.0); Mean Corpuscular Hgb Conc 33.7 g/dL (32-36); RDW Coefficient of Variation 14.7 % (11.5-14.5); RDW Standard Deviation 49.9 fL (36.4-46.3); Red Blood Count 3.59 M/uL (4.7-6.1); White Blood Count 3.39 K/uL (4.8-10.8)
[2019-01-02 07:27] LABS: Mean Platelet Volume 10.2 fL (7.4-10.4); Platelet Count 83 K/uL (130-400)
[2019-01-02] MEDS: POTASSIUM CHLORIDE 20 MEQ TABCR PO SCH (08:44)
[2019-01-02] MEDS: NIFEdipine EXTENDED REL 30 MG TABCR PO SCH (08:44)
[2019-01-02] MEDS: DOCUSATE SODIUM 100 MG CAP PO SCH (08:44)
[2019-01-02] MEDS: cefUROXime axetil 500 MG TAB PO SCH (08:44)
[2019-01-02] MEDS: CHOLECALCIFEROL 1,000 UNITS TAB PO SCH (08:45)
[2019-01-02] MEDS: HEPARIN SOD 5,000 UNIT/0.5 ML VIAL SQ SCH (08:45)
--- NOTE | 2019-01-02 13:06 | Hospitalist Progress Note ---
Date of Service January 02, 2019 Assessment & Plan (1) Periprosthetic fracture around internal prosthetic left hip joint: S/P mechanical fall Conservative management Nonweightbearing left lower extremity for 4 weeks Pain control PT OT evaluation Needs repeat follow-up with orthopedics in 4 weeks with repeat radiographs Appreciate orthopedics input Waiting for SNF placement Case management on board Left ribs fracture--POA Secondary to fall Pain is controlled Continue incentive spirometer Urinary tract infection Urine culture: Klebsiella pneumoniae Continue p.o. antibiotics Day #5 (2) Fall: Plan as above. (3) Head injury: Minimal injury, CT head is negative, no LOC noted, Supportive care (4) Hypertension: Continue nifedipine. (5) Hypokalemia: Replace electrolytes as needed Monitor (6) Abdominal aneurysm: chronic stable on imaging August 2018. Approx 5.2cm in diameter (7) Thoracic aortic dissection: chronic, stable on imaging August 2018. (8) DVT prophylaxis: Heparin SQ Code Status Full Code Disposition: Plan to discharge SNF today Subjective Patient is seen and examined at bedside Doing better today Mild left sided rib pain at the site of fracture left leg pain is controlled Planned to be discharged to SNF today Denies any chest pain, shortness of breath, dizziness Review of Systems Review of Systems: All systems reviewed & are unremarkable except as noted in HPI & below Physical Exam Physical Exam: Physical Exam: Vitals signs as noted above General Appearance:Moderately built and nourished, no apparent distress Head: normocephalic, Atraumatic Eyes: normal inspection, EOMI Neck: supple, Trachea midline Respiratory/Chest: Normal breath sounds, CTA, left chest bruising Cardiovascular: S1, S2, No murmur Abdomen/GI:Soft, Non tender, Bowel sounds present Extremities/Musculoskelatal:normal inspection, + LE edema. Left hip well-healed surgical incision, minimal ecchymosis Neurologic/Psych:AAOX3, grossly no focal neurological deficits Skin: normal color, warm Results & Data Vital Signs (Past 12 Hours) Vital Signs Temp Pulse Pulse Pulse Pulse Pulse Resp 01/02/19 12:48 36.6 C 80 84 77 80 86 18 01/02/19 07:51 36.6 C 80 18 BP BP Pulse Ox 01/02/19 12:48 126/76 143/77 H 91 01/02/19 07:51 126/76 91 Laboratory Results Short CBC 08/30/19 Range/Units 06:58 WBC 3.39 L (4.8-10.8) K/uL Hgb 11.5 L (14.0-18.0) g/dL Hct 34.1 L (42-52) % Plt Count 83 L (130-400) K/uL (1) Head injury Encounter type: initial encounter Qualified Code(s): S09.90XA - Unspecified injury of head, initial encounter (2) Fall Encounter type: initial encounter Qualified Code(s): W19.XXXA - Unspecified fall, initial encounter
--- NOTE | 2019-01-02 13:20 | Discharge Summary ---
Date of Service January 02, 2019 Admission HPI Per Admitting Provider 83 yo M with bilateral hip replacements presented s/p mechanical fall at home while stepping up onto a stop in his garage workshop. He came down on his L hip, LUE and L forehead but denies LOC or current headache. He is mentating normally. No pain in LUE. Subsequent fracture or L hip was found on imaging. He denies other lightheadedness, chest pain, shortness of breath or recent illnesses. 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 He reports taking prednisone for approx one week straight approximately once per month. He takes Symbicort PRN and states this is through the [facility] and is for asthma. He denies any current respiratory symptoms. 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 He has stable aortic pathology with no current plans for surgery. He does occasionally use Ibuprofen for OA pain and has been known to get facial swelling because he has a Type I allergy to this. He was advised that this is dangerous, and he should be given an Epi- pen at discharge. He and his verbalized understanding with intent to comply. Admission Exam Per Admitting Provider CONSTITUTIONAL: WNWD, vitals as above, generally well-appearing EYES: EOMI bilaterally, PERRL, normal conjunctivae, no scleral icterus, some chronic abnormality of L eye compared with right-more sluggish to move, aperture more closed than L eye ENT: oropharynx clear, MMM RESPIRATORY: clear to auscultation bilaterally, no crackles, rales or wheezes, normal respiratory effort CARDIOVASCULAR: regular rate and rhythm, S1 and 2 heard without murmurs, gallops or rubs, no JVD, no peripheral edema GASTROINTESTINAL: soft, nontender, nondistended MUSCULOSKELETAL: strength 5/5 throughout-LLE immovable 2/2 pain and fracture, head is normocephalic. No pain to palpation or decreased ROM of LUE. Lower extremities are NVI. SKIN: warm and dry, small L frontal scalp laceration. Small skin tear on L arm. NEUROLOGIC: No facial palsy, no dysarthria. CN 2-12 grossly intact, no sensory deficit, normal cognition, normal speech, no tremor, no gross focal deficits. PSYCHIATRIC: alert cooperative and oriented to person, place and time. Principal Diagnosis Discharge Information Discharge Diagnosis Left periprosthetic Hip Fracture Urinary Tract Infection Left rib fractures Fall Hypertension Discharge Goals Decrease discomfort,Improve disease control, Improve function Discharge Activity Limitations As commented below Discharge Data Allergies Allergy/AdvReac Type Severity Reaction Status Date / Time Iodinated Contrast- Oral and Allergy Intermediate HIVES Verified 12/27/18 11:21 IV Dye aspirin Allergy SWELLING/HI Verified 12/27/18 11:21 VES Cipro Allergy SWELLING/HI Verified 09/07/12 21:55 VES ciprofloxacin Allergy SWELLING/HI Verified 12/27/18 11:21 VES lorazepam Allergy NEURO Verified 12/27/18 11:21 CHANGES Consultations 12/27/18 13:33 Consult Case Management - Discharge Planning Routine Consult Orthopedic Surgery Routine Procedures Performed Head CT: 1. No acute intracranial findings. 2. Small left frontal scalp contusion. No calvarial fracture. 3. Air-fluid level within the left maxillary sinus which is likely inflammatory. Hip/Pelvic X ray: Acute minimally displaced comminuted periprosthetic left femoral fracture which extends through the greater trochanter. Chest X ray: Several age indeterminate nondisplaced left-sided rib fractures. No pneumothorax. Neck CT: No acute cervical spine fracture or subluxation. Hip CT: 1. Bilateral hip total joint arthroplasties. Acute mildly displaced comminuted periprostatic fracture about the left femur with extension into the greater trochanter. 2. No associated dislocation or acute pelvic fracture identified. Ordered Studies 12/27/18 10:41 CT cervical spine wo con Stat CT head/brain wo con Stat 12/27/18 15:33 CT hip LT wo con Routine Hospital Course (1) Periprosthetic fracture around internal prosthetic left hip joint: S/P mechanical fall Conservative management Nonweightbearing left lower extremity for 4 weeks Pain control PT OT evaluation Needs repeat follow-up with orthopedics in 4 weeks with repeat radiographs Appreciate orthopedics input Waiting for SNF placement Case management on board Left ribs fracture--POA Secondary to fall Pain is controlled Continue incentive spirometer Urinary tract infection Urine culture: Klebsiella pneumoniae Continue p.o. antibiotics Day #5 (2) Fall: Plan as above. (3) Head injury: Minimal injury, CT head is negative, no LOC noted, Supportive care (4) Hypertension: Continue nifedipine. (5) Hypokalemia: Replace electrolytes as needed Monitor (6) Abdominal aneurysm: chronic stable on imaging August 2018. Approx 5.2cm in diameter (7) Thoracic aortic dissection: chronic, stable on imaging August 2018. (8) DVT prophylaxis: Heparin SQ Code Status Full Code Disposition: Plan to discharge SNF today Total Time Total Time Spent Total Time Spent (In Minutes): 35 MINUTES Total Time Includes: Examination of the Patient, Discharge Planning, Medication Reconciliation, Communication With Other Providers and Other Discharge Plan Discharge Items Patient Disposition: Transfer [facility] Fac Reason For Visit: L HIP FRACTURE Discharge Diagnosis: Left periprosthetic Hip Fracture Urinary Tract Infection Left rib fractures Fall Hypertension Condition: Fair Discharge Goals: Decrease discomfort, Improve disease control and Improve function Activity: As commented below Activity Comment: NWB LLE x 4 Weeks, Wheel Chair Lifting: None Bathing: No limitations Sexual Activity: Wait until after follow-up appointment Exercise/Sports: Wait until after follow-up appointment Driving/Machine Use Comment: No Driving Weightbearing: Left non-weightbearing and Right weightbearing Non-emergency contact: Primary Care Provider and Surgeon Call non-emergency contact if: you have any medication questions and your symptoms worsen Follow-up/Referrals: George Espino DO [Surgeon] - (4 weeks) Ricky Landers MD [Primary Care Provider] - Diet: Heart Healthy Addtl Provider Instructions: Needs f/u XR prior to ortho appt with Dr Espino (Orthopedics) in 4 weeks [place] LLE x 4 weeks Follow-up with your primary care physician Dr. Landers in 1 week after being discharged from rehab facility Complete the antibiotic course for urinary tract infection as prescribed Seek immediate medical attention if your symptoms reoccur or worsen Prescriptions: New polyethylene glycol 3350 [Miralax] 17 gram Powder In Packet 17 g PO DAILY PRN (Reason: constipation) Qty: 30 RF: 0 cefuroxime axetil 500 mg Tablet 500 mg PO Q12 3 Days Qty: 6 RF: 0 docusate sodium 100 mg Capsule 100 mg PO BID Qty: 14 RF: 0 oxycodone 5 mg tablet 5 mg PO Q6H PRN (Reason: pain) Qty: 10 RF: 0 Continued carvedilol 3.125 mg tablet 3.125 mg PO HS RF: 0 nifedipine 30 mg Tablet Extended Release 24hr 30 mg PO BID RF: 0 tamsulosin [Flomax] 0.4 mg Capsule 0.4 mg PO HS RF: 0 finasteride [Proscar] 5 mg Tablet 5 mg PO HS RF: 0 Symbicort 160-4.5 mcg/actuation Hfa Aerosol Inhaler 2 puff INHALATION BID RF: 0 cholecalciferol (vitamin D3) [Vitamin D3] 2,000 unit Tablet 2,000 unit PO DAILY RF: 0 potassium chloride 20 mEq Tablet Extended Release 20 meq PO DAILY RF: 0 Discontinued prednisone 5 mg tablet 5 mg PO DAILY PRN (Reason: knee pain) RF: 0 Stand-Alone Forms: [facility] Discharge Orders: Discharge Order (Routine); Ordered 01/02/19 Ordered By: Mitchel Lui Skilled Items Patient informed of condition?: Yes DNR: No Discharge Level of Care: Skilled Communicable Disease: No Discharge Prognosis: Improving Admission Data Admit Date/Time: 12/27/18 12:45 Attending Provider: Mitchel Lui Admit Provider: Erika Paiz Primary Care Provider: Ricky Landers Other Providers: George Espino Gary Service: Medical Other Interventions: Discharge Summary Assessment (RN) Last Done: 01/02/19 12:48 Pending Studies at Discharge: No DC Date/Time DO NOT enter until pt leaves facility: 01/02/19 19:00
[2019-01-02] MEDS: MoRPHine SULFATE 2 MG/ML CARP IV PRN (14:39)
== END 2019-01-02 19:00 | DRG 559 ==
LOC: ED 10:36 → 3N 12:45 → SUATTDRO 12:45 → 3N 13:03